=== PATIENT | male | born 1990 | race Asian ===

== ENCOUNTER 2019-09-24 22:47 | Emergency (ER) | payer OTHER, MEDICAID ==
[~2019-09-24] VITALS: Ht 175.3 cm; Wt 79.4 kg
[2019-09-24 22:54] VITALS: Ht 175.3 cm; Wt 79.4 kg
[2019-09-25 00:25] LABS: BASOPHIL % 0.3 % (0-2); PLATELET COUNT 233 x10^3mcL (130-400); RED CELL DISTRIBUTION WIDTH 12.5 % (11.5-14.5)
[2019-09-25 00:36] LABS: CALCIUM 7.8 mg/dL (8.5-10.1); CARBON DIOXIDE 18.3 mmol/L (21-32); CREATININE SERUM 1.5 mg/dL (0.7-1.3)
[2019-09-25 00:39] LABS: ALBUMIN 3.9 g/dL (3.4-5.0); BILIRUBIN TOTAL 0.38 mg/dL (0.20-1.00); TOTAL PROTEIN, SERUM 7.2 g/dL (6.4-8.2)
[2019-09-25 03:05] LABS: AMPHETAMINE QUAL UR NONE DETECTED (See below)
[2019-09-25 05:44] VITALS: BP 145/104
== END 2019-09-25 05:44 | disposition home or self-care (01) ==
LOC: ED 22:47
PROVIDERS: Emergency Medicine
DX: S52.502A Unspecified fracture of the lower end of left radius, initial encounter for closed fracture (principal); S52.602A Unspecified fracture of lower end of left ulna, initial encounter for closed fracture; V29.9XXA Motorcycle rider (driver) (passenger) injured in unspecified traffic accident, initial encounter; Y93.I9 Activity, other involving external motion; Y92.413 State road as the place of occurrence of the external cause; Y99.8 Other external cause status; S09.8XXA Other specified injuries of head, initial encounter
CPT/HCPCS: G0480; J2270; J2405; J3010; Q0092